=== PATIENT | male | born 1980 | race African-American/Black ===

== ENCOUNTER 2017-09-29 20:05 | Inpatient (IN) | payer OTHER, MEDICAID ==
[~2017-09-29] VITALS: Ht 330.2 cm; Wt 119.7 kg
[2017-09-29 22:41] LABS: *AMPHETAMINES SCREEN URINE NEGATIVE (NEGATIVE); *BARBITURATES SCREEN URINE NEGATIVE (NEGATIVE); CANNABINOID URINE SCREEN NEGATIVE (NEGATIVE); METHADONE URINE SCREEN NEGATIVE (NEGATIVE); OPIATES URINE SCREEN NEGATIVE (NEGATIVE); PHENCYCLIDINE URINE SCREEN NEGATIVE (NEGATIVE)
[2017-09-29 22:42] LABS: BASOPHILS % 0.3 % (0.0-2.0); EOSINOPHILS % 1.6 % (0.0-5.0); HEMATOCRIT. 33.9 % (42.0-52.0); HEMOGLOBIN. 11.3 g/dL (14.0-18.0); LYMPHOCYTES % 10.6 % (20.0-50.0); MEAN CORPUSCULAR HEMOGLOBIN 29.2 pg (28.0-32.0); MEAN CORPUSCULAR VOLUME 87.3 fL (80.0-94.0); MEAN PLATELET VOLUME 8.5 fl (7.4-10.4); MONOCYTES % 9.6 % (2.0-8.0); NEUTROPHILS % 77.9 % (40.0-76.0); PLATELET 255 x1000/uL (130-400); RED BLOOD CELL COUNT 3.88 mill/uL (4.7-6.1); RED CELL DISTRIBUTION WIDTH 13.7 % (11.6-14.6)
[2017-09-29 22:43] LABS: *BENZODIAZEPINES SCREEN URINE NEGATIVE (NEGATIVE); *COCAINE SCREEN URINE NEGATIVE (NEGATIVE)
[2017-09-29 22:45] LABS: CHLORIDE 97 mEq/L (98-107)
[2017-09-29 22:48] LABS: INR 1.1; PARTIAL THROMBOPLASTIN TIME 24.5 sec (23.4-31.0); PROTHROMBIN TIME 11.9 sec (9.4-11.6)
[2017-09-29 22:49] LABS: ETHANOL BLOOD < 10 mg/dL
[2017-09-30] MEDS ORDERED: ASPIRIN 81MG TABLET PO ONE (00:30)
[2017-09-30 09:00] VITALS: BP 180/96
[2017-09-30] MEDS ORDERED: CLONIDINE 0.1MG TABLET PO PRN (09:00)
[2017-09-30] MEDS ORDERED: HYDROCODONE/ACETAMINOPHEN 5/325MG TABLET PO PRN (09:00)
[2017-09-30] MEDS ORDERED: CARVEDILOL 6.25 MG TABLET PO SCH (09:00)
[2017-09-30] MEDS ORDERED: LOSARTAN POTASSIUM 50 MG TABLET PO SCH (09:00)
[2017-09-30] MEDS: ASPIRIN 81MG TABLET PO SCH (09:17)
[2017-09-30] MEDS: ENOXAPARIN 30MG/0.3ML SYR SUBCUT SCH ×2 (09:18→20:50)
[2017-09-30 12:00] VITALS: BP 126/84
[2017-09-30] MEDS: ISOSORB DINIT/HYDRALAZINE HCL 20/37.5MG TABLET PO SCH ×2 (13:23→21:02)
[2017-09-30] MEDS: AMIODARONE HCL 200 MG TABLET PO SCH ×2 (13:23→17:46)
[2017-09-30] MEDS ORDERED: ALBU18HF2 IH (13:45)
[2017-09-30] MEDS ORDERED: ASPI-1158 MT (13:45)
[2017-09-30] MEDS ORDERED: ATOR40TA70 MT (13:45)
[2017-09-30] MEDS ORDERED: DULO30CA51 PO (13:45)
[2017-09-30] MEDS ORDERED: APIX5TAB MT (13:45)
[2017-09-30] MEDS ORDERED: SPIR25TA6 MT (13:45)
[2017-09-30] MEDS ORDERED: LISI40TA4 MT (13:45)
[2017-09-30] MEDS ORDERED: [UNRECOGNIZED DRUG - CODE] PO (13:45)
[2017-09-30 16:00] VITALS: BP 126/84
[2017-09-30] MEDS: DULOXETINE HCL 30MG DR CAPSULE PO SCH (18:33)
[2017-09-30 20:00] VITALS: BP 121/71
[2017-09-30] MEDS ORDERED: ATORVASTATIN CALCIUM 40MG TABLET PO SCH (21:00)
[2017-09-30] MEDS: CARVEDILOL 25MG TABLET PO SCH (21:02)
[2017-09-30 22:00] VITALS: BP 121/71
[2017-10-01] VITALS (7 sets, daily range): BP systolic 97–142; BP diastolic 60–94
[2017-10-01] MEDS: AMIODARONE HCL 200 MG TABLET PO SCH ×2 (06:16→12:56)
[2017-10-01] MEDS: ISOSORB DINIT/HYDRALAZINE HCL 20/37.5MG TABLET PO SCH ×2 (06:17→14:00)
[2017-10-01 07:28] LABS: BASOPHILS % 0.5 % (0.0-2.0); EOSINOPHILS % 5.7 % (0.0-5.0); HEMATOCRIT. 31.3 % (42.0-52.0); HEMOGLOBIN. 10.5 g/dL (14.0-18.0); MEAN CORPUSCULAR HEMOGLOBIN 29.4 pg (28.0-32.0); MEAN CORPUSCULAR VOLUME 87.8 fL (80.0-94.0); MEAN PLATELET VOLUME 8.9 fl (7.4-10.4); MONOCYTES % 12.4 % (2.0-8.0); NEUTROPHILS % 58.4 % (40.0-76.0); PLATELET 225 x1000/uL (130-400); RED BLOOD CELL COUNT 3.57 mill/uL (4.7-6.1); RED CELL DISTRIBUTION WIDTH 13.6 % (11.6-14.6)
[2017-10-01] MEDS: DULOXETINE HCL 30MG DR CAPSULE PO SCH (08:09)
[2017-10-01] MEDS: ASPIRIN 81MG TABLET PO SCH (08:09)
[2017-10-01] MEDS: CARVEDILOL 25MG TABLET PO SCH (08:14)
[2017-10-01] MEDS ORDERED: LOSARTAN POTASSIUM 100 MG TABLET PO SCH (09:00)
[2017-10-01] MEDS ORDERED: POTASSIUM CHLORIDE 20MEQ TABLET SR PO SCH (10:15)
[2017-10-01] MEDS: ENOXAPARIN 30MG/0.3ML SYR SUBCUT SCH (10:18)
[2017-10-01] MEDS ORDERED: POTASSIUM CHLORIDE 20MEQ TABLET SR PO ONE (11:00)
== END 2017-10-01 20:05 | disposition home or self-care (01) | DRG 309 ==
LOC: ER 20:05 → 5WST 09-30 01:08 → EDBEDREQ 09-30 01:10 → EDBEDREQTM 09-30 01:10 → ENRESERV 09-30 06:50
PROVIDERS: ADMIT Internal Medicine; ATTEND Internal Medicine
PROC: 4B02XTZ Measurement of Cardiac Defibrillator, External Approach (ICD-10-PCS; principal; 2017-10-01)
DX: I47.1 Supraventricular tachycardia (principal); I42.9 Cardiomyopathy, unspecified; N17.9 Acute kidney failure, unspecified; E11.9 Type 2 diabetes mellitus without complications; E78.5 Hyperlipidemia, unspecified; J45.909 Unspecified asthma, uncomplicated; I11.0 Hypertensive heart disease with heart failure; I45.81 Long QT syndrome; I50.9 Heart failure, unspecified; Z95.810 Presence of automatic (implantable) cardiac defibrillator; Z82.3 Family history of stroke; Z79.899 Other long term (current) drug therapy; Z79.82 Long term (current) use of aspirin; Z82.49 Family history of ischemic heart disease and other diseases of the circulatory system
CPT/HCPCS: 36415; 71045; 80048; 80053; 80061; 80305; 83036; 83880; 84443; 84484; 85025; 85610; 85730; 93005; 93306; 93970; 99285; G0482; J1650

== ENCOUNTER 2020-08-07 15:57 | Emergency (ER) | payer MEDICARE, MEDICAID ==
[~2020-08-07] VITALS: Ht 180.3 cm; Wt 100.0 kg
[~2020-08-07 15:57] MED LIST: ALBU18HF2 IH; APIX5TAB MT; ASPI-1406 MT; ATOR40TA70 MT; DULO30CA52 PO; LISI40TA13 MT; SPIR25TA6 MT; [UNRECOGNIZED DRUG - CODE] PO
[2020-08-07 16:27] LABS: HEMATOCRIT. 42.1 % (42.0-52.0); HEMOGLOBIN. 14.1 g/dL (14.0-18.0); MEAN CORPUSCULAR HEMOGLOBIN 30.7 pg (28.0-32.0); MEAN CORPUSCULAR VOLUME 91.9 fL (80.0-94.0); MEAN PLATELET VOLUME 8.8 fl (7.4-10.4); PLATELET 285 x1000/uL (130-400); RED BLOOD CELL COUNT 4.58 mill/uL (4.7-6.1); RED CELL DISTRIBUTION WIDTH 14.6 % (11.6-14.6)
[2020-08-07 16:34] LABS: CHLORIDE 103 mEq/L (98-107)
[2020-08-07 16:40] LABS: ETHANOL BLOOD 232 mg/dL
[2020-08-07 16:59] LABS: CLARITY URINE CLEAR (CLEAR); COLOR URINE YELLOW (YELLOW); KETONES URINE NEGATIVE (NEGATIVE); LEUKOCYTE ESTERASE URINE NEGATIVE (NEGATIVE); NITRITE URINE NEGATIVE (NEGATIVE); OCCULT BLOOD URINE NEGATIVE (NEGATIVE); PROTEIN URINE NEGATIVE (NEGATIVE); SPECIFIC GRAVITY URINE 1.008 (1.005-1.030)
[2020-08-07 17:14] LABS: *AMPHETAMINES SCREEN URINE NEGATIVE (NEGATIVE); *BARBITURATES SCREEN URINE NEGATIVE (NEGATIVE); *BENZODIAZEPINES SCREEN URINE NEGATIVE (NEGATIVE); *COCAINE SCREEN URINE NEGATIVE (NEGATIVE); METHADONE URINE SCREEN NEGATIVE (NEGATIVE); OPIATES URINE SCREEN NEGATIVE (NEGATIVE)
[2020-08-07 17:15] LABS: CANNABINOID URINE SCREEN NEGATIVE (NEGATIVE); PHENCYCLIDINE URINE SCREEN NEGATIVE (NEGATIVE)
[2020-08-07 17:18] LABS: PLATELET ESTIMATE NORMAL
[2020-08-07] MEDS ORDERED: LABETALOL 5MG/ML SYR 20 MG/4 ML SYRINGE IV ONE (18:00)
[2020-08-07] MEDS ORDERED: MAGNESIUM 2 G PREMIX 50 ML IV ONE (20:30)
[2020-08-07] MEDS ORDERED: POTASSIUM PHOS,M-BASIC-D-BASIC 10 MMOL in DEXT 5% WATER 246.6667 ML IV NR (21:00)
[2020-08-07 21:48] VITALS: BP 176/84
== END 2020-08-07 21:48 | disposition hospice, inpatient (51) ==
LOC: ER 16:00
DX: I49.9 Cardiac arrhythmia, unspecified (principal); E11.9 Type 2 diabetes mellitus without complications; I10 Essential (primary) hypertension; Z79.899 Other long term (current) drug therapy; Z98.890 Other specified postprocedural states
CPT/HCPCS: 36415; 71045; 80053; 80305; 80320; 81003; 83690; 83735; 83880; 84100; 85025; 93005; 96365; 96367; 96375; 99285; J3475; J3490; J7060; G0480